=== PATIENT | female | born 1985 | race Two or more races ===

== ENCOUNTER 2017-06-18 00:27 | Day surgery (SDC) | payer BC ==
[2014-03-13 10:05] VITALS: Ht 149.9 cm; Wt 56.7 kg
[~2017-06-18] VITALS: Ht 149.9 cm; Wt 56.7 kg
[2017-06-18] VITALS (8 sets, daily range): BP systolic 99–121; BP diastolic 65–85
[~2017-06-18 00:27] MED LIST: ACE325 PO; ACE500 PO; ACET-1718 PO; AMIT-106 PO; AMOX-362 PO; AMOX-559 PO; AMOX1TAB3 PO; ASPI-715 PO; ASPI1TAB35 PO; AZIT-1 PO; BAC PO; BACDS; BACDS PO; BENZ200C15 PO; BUTA-1 PO; BUTA-324 PO; BUTA1CAP4 PO; BUTA1TAB14 PO; CEFU250T11 PO; CELE100C79 PO; CEP250 PO; CEPH250C37 PO; CHOL200074 PO; CHOL500016 PO; CHOL500050 PO; CIPR-344 PO; CIT20 PO; CITA-156 PO; CLIN-75 PO; CLIN300C99 PO; CLOM50TA18 PO; CYCL10TA29 PO; DAR100 PO; DESV50TA9 PO; DIPH-911 PO; DOC100 PO; DOCO200C PO; DULO30CA6 PO; DULO60CA56 PO; ESCI20TA38 PO; ESCI5TAB10 PO; ETHI1TAB26 PO; FAM20 PO; FAMO20TA28 PO; FERR-1 PO; FERR-53 PO; FLUC150T40 PO; FOL1 PO; GABA-549 PO; GUAI120L3 PO; HYDR-317 PO; HYDR-3503 PO; HYDR-385 PO; HYDR-389 PO; HYDR-4225 PO; HYDR-4228 PO; HYDR-4309 PO; HYDR2TAB74 PO; IBU600 PO; IBU800 PO; IBUP-1671 PO; IBUP-2708 PO; IBUP600T22 PO; IBUP800T37 PO; IRON; IRON1TAB55 PO; KET10 PO; KLONOPIN; L-NO1TBD6 PO; LEVAQUIN; LEVO750T44 PO; LIDO700A19 TOP; LOR5/325 PO; LORA-1458 PO; MELO-205 PO; METO-734 PO; METR-1 PO; METXR500 PO; MULT-1335 PO; NAP250 PO; NAPR-733 PO; NAPR500T75 PO; NEBI2.5T PO; NIF10 PO; NIT100 PO; NITR-105 PO; NITR-106 PO; OMEP-218 PO; OND4 PO; ONDA-153 SL; ONDA4TAB PO; ONDA4TAB9 SL; ONDA4TAB97 PO; ONDA8TAB98 PO; OXYC-373 PO; OXYC-865 PO; OXYC1CAP PO; OXYC1TAB54 PO; PANT40TA13 PO; PANT40TA65 PO; PED1TAB.; PER PO; PHEN-530 PO; PHEN100T27 PO; PHEN200T32 PO; PHENA100; PHENA200 PO; PHENERGAN; PNV1TABL92 PO; POTA-1 PO; POTA20TA85 PO; POTA20TA94 PO; POTA25TA28 PO; POTA8TAB41 PO; POTT20 PO; PRAZ1CAP26 PO; PRED-1 PO; PRED20TA6 PO; PREN-75 PO; PRO100 PO; PRO25 PO; PROC25SU3 PO; PROM-110 PO; PROM12.514 RC; PROM125S PR; PROM25SU9 RC; PROP20TA56 PO; PYRI25TA18 PO; SER50; SERT-1 PO; SERT-181 PO; SERT-184 PO; SERT20OR6 PO; SERT25TA87 PO; SERT25TA90 PO; SULF-198 PO; SUMA50TA34 PO; TAMS0.4C25 PO; TERB5TAB15 PO; TRAM-420 PO; TRAM-627 PO; TRAZ-163 PO; VIT B6; [UNRECOGNIZED DRUG - CODE] IM; [UNRECOGNIZED DRUG - CODE] PO; [UNRECOGNIZED DRUG - CODE] PO; [UNRECOGNIZED DRUG - CODE] PO; [UNRECOGNIZED DRUG - CODE] PO; [UNRECOGNIZED DRUG - CODE] PO; [UNRECOGNIZED DRUG - REMARK]
[2017-06-18] MEDS ORDERED: PROPOFOL EMUL(*) 10MG/ML 20 ML 40 ML ONE (07:29)
--- NOTE | 2017-06-18 07:34 | Post Operative Progress Note ---
Post Operative Progress Note Date: Jun 18, 2017 Time: 10:49 Surgeon: marilu Anesthesia: dr noe Pre-Op Diagnosis: hematemesis Post-Op Diagnosis: distaal esophagitis and gastritis Procedure(s): egd and biopsy CHRIS CROW MD Jun 18, 2017 07:34
--- NOTE | 2017-06-18 07:36 | Short(Outpt) Discharge Summary ---
Discharge Summary Reason for Hosp/Final Diag: (1) Hematemesis Hospital Course & Plan: distal esophagitis and gastritis Departure Discharge to: Home Discharge Instructions Home Meds Active Scripts Amitriptyline Hcl (AMITRIPTYLINE HCL) 25 Mg Tablet, 1 TAB PO QHS, #30 TAB 5 Refills Prov:EROS PERERA APRN-C 06/12/17 Butalb/Acetaminophen/Caff 50-325-40 Mg (FIORICET 50-325-40) 1 Each Tablet, 1-2 TAB PO Q4H Y for HEADACHE, #30 TAB 0 Refills Prov:EROS PERERA APRNP-C 06/03/17 Promethazine Hcl (PROMETHAZINE HCL) 12.5 Mg Supp.rect, 1 SUPP RC Q8H Y for NAUSEA, #30 SUPP.RECT 0 Refills as needed for nausea associated with migraine Prov:EROS PERERA APRN-C 06/03/17 Tramadol Hcl (TRAMADOL HCL) 50 Mg Tablet, 1 TAB PO QID, #120 TAB 0 Refills Prov:EROS PERERA APRNP-C 05/19/17 Duloxetine Hcl (CYMBALTA) 60 Mg Capsule.dr, 1 TAB PO DAILY, #30 TAB 6 Refills Prov:EROS PERERA APRN-C 05/19/17 Discontinued Reported Medications Tamsulosin Hcl (FLOMAX) 0.4 Mg Cap.er.24h, 0.4 MG PO QPM, #15 CAP 01/29/17 Discontinued Scripts Levofloxacin 750 Mg Tab (LEVAQUIN 750 MG TAB) 750 Mg Tablet, 1 TAB PO DAILY, #5 TAB 0 Refills Prov:EROS PERERA APRNP-C 06/12/17 Benzonatate (BENZONATATE) 200 Mg Capsule, 1 CAP PO TID Y for cough, #30 CAPSULE 0 Refills Prov:EROS PERERA APRN-C 06/10/17 Prednisone (PREDNISONE) 20 Mg Tablet, 2 TAB PO QDAY, #10 TAB 0 Refills Prov:EROS PERERA APRNP-C 06/10/17 Lidocaine (Lidocaine) 5 % Adh..patch, 1 PATCH TOP DAILY for 30 Days, #30 PATCH 2 Refills May apply 1/2-1 patch for up to 12h/day. Cover most painful areas. May cut to size. Prov:EROS PERERA APRN-C 05/19/17 Promethazine Hcl (PROMETHAZINE HCL) 25 Mg Tablet, 25 MG PO Q8H Y for NAUSEA/ VOMITING, #12 TAB Prov:JOHNATHON ARROYO PA-C 04/20/17 Prazosin Hcl (PRAZOSIN HCL) 1 Mg Capsule, 2 MG PO QHS, #180 CAPSULE 0 Refills Prov:EROS PERERA APRN-C 03/23/17 Cholecalciferol (Vitamin D3) (Vitamin D) 50,000 Unit Capsule, 1 CAP PO QWEEK, # 12 CAP 0 Refills Prov:EROS PERERA APRN-C 11/07/16 Hydroxyzine Hcl (HYDROXYZINE HCL) 50 Mg Tablet, 1 TAB PO QID Y for ANXIETY, #30 TAB 0 Refills Prov:EROS PERERA APRNC 05/19/17 Diet: Regular Activity: As Tolerated Special Instructions: continue protonix CHRIS CROW MD Jun 18, 2017 07:36
[2017-06-18] MEDS: NORMOSOL R SOLN(*) 1000 ML BAG 1,000 ML IV PRN ×2 (09:05→11:13)
[2017-06-18] MEDS ORDERED: LIDOCAINE/SOD BICARB 8.4% SYR ID ONE (09:25)
[2017-06-18] MEDS ORDERED: MIDAZOLAM 2 MG/2 ML VIAL IVP PRN (09:25)
[2017-06-18] MEDS ORDERED: PROMETHAZINE 25 MG/ML 1 ML AMP ONE (11:09)
--- NOTE | 2017-06-18 16:09 | OPERATIVE REPORT 1 ---
EVENT DATE: June 18, 2017 SURGEON: Bird Velasquez MD ANESTHESIOLOGIST: Abbey Barragan MD ANESTHESIA: Sedation. PREOPERATIVE DIAGNOSIS Hematemesis. POSTOPERATIVE DIAGNOSIS Distal esophagitis and gastritis. PROCEDURE PERFORMED Esophagogastroduodenoscopy with biopsy. DESCRIPTION OF PROCEDURE The patient was placed in the left lateral decubitus position and given intravenous sedation. The flexible gastroscope was inserted. The GE junction was at 32 cm, distinct. There were irritations and erosions in three different areas. Pictures were taken. We entered the stomach which was empty. There were some flecks of bright red blood on the gastric mucosa. She appeared to have a gastritis. We passed through the pylorus into the second and third portions of the duodenum which were normal. The duodenal bulb was normal. At the pylorus, she had a prepyloric erosion, not a discrete ulcer. The scope was then placed in the middle of the stomach. Biopsies were taken for H. pylori, and biopsies were taken for histology. The scope was retroflexed. There were no fundic lesions. No hiatal hernia. The scope was withdrawn. The patient tolerated the procedure well with no apparent complication. MTDCelestino
[2017-06-19] MEDS ORDERED: PANT40TA65 PO (16:15)
[2017-06-19] MEDS ORDERED: AMIT-108 PO (16:33)
[2017-06-19] MEDS ORDERED: TRAM-420 PO (16:33)
[2017-06-19] MEDS ORDERED: PROM12.514 RC (16:49)
[2017-06-24] MEDS ORDERED: PRAZ2CAP26 PO (08:09)
[2017-06-24] MEDS ORDERED: BUTA1TAB14 PO (08:10)
[2017-06-25] MEDS ORDERED: GABA-549 PO (12:01)
== END 2017-06-18 12:18 | disposition home or self-care (01) ==
LOC: OR 00:27
PROVIDERS: ATTEND Surgery
DX: K92.0 Hematemesis (principal); K20.9 Esophagitis, unspecified; K29.70 Gastritis, unspecified, without bleeding
CPT/HCPCS: 43239; 87077; 88305; 88344; J2550; J2704

== ENCOUNTER → 2018-01-08 | Outpatient (CLI) | payer BC ==
[2014-03-13 10:05] VITALS: BMI 27.3
[~2018-01-08] MED LIST changes: +AMIT-108 PO; +PRAZ2CAP26 PO; +PREG75CA60 PO; -PREN-75 PO; +PREN1TAB29 PO; +SERT-173 PO; -SERT20OR6 PO; +SUCR1TAB85 PO; -TRAZ-163 PO; +TRAZ100T31 PO
== END ==
LOC: RESP 03:22
PROVIDERS: ATTEND Nurse Practitioner Family
DX: G47.30 Sleep apnea, unspecified (principal)

== ENCOUNTER 2018-04-08 01:48 | Observation (INO) | payer BC ==
[2018-04-08] VITALS (20 sets, daily range): BP systolic 83–111; BP diastolic 49–86
[~2018-04-08] VITALS: Ht 149.9 cm; Wt 52.6 kg
[~2018-04-08 01:48] MED LIST changes: -HYDR-4309 PO; +HYDR-653 PO
[2018-04-08] MEDS ORDERED: ceFAZolin(*) 1 GM VIAL 1 GM in NS(*) 0.9% 100 ML ADDVANT BAG 100 ML IVPB ONE (13:35)
[2018-04-08] MEDS ORDERED: NORMOSOL R SOLN(*) 1000 ML BAG 1,000 ML IV PRN (13:35)
[2018-04-08] MEDS ORDERED: LIDOCAINE/SOD BICARB 8.4% SYR ID ONE (13:35)
[2018-04-08] MEDS ORDERED: SCOPOLAMINE 1.5 MG PATCH TD ONE (13:35)
[2018-04-08] MEDS ORDERED: MIDAZOLAM 2 MG/2 ML VIAL IVP PRN (13:35)
[2018-04-08] MEDS ORDERED: fentaNYL CITR 100 MCG/2 ML AMP ONE ×2 (15:19→17:18)
[2018-04-08] MEDS ORDERED: KETOROLAC 30 MG/ML VIAL ONE ×2 (15:23→16:54)
[2018-04-08] MEDS ORDERED: PROPOFOL EMUL(*) 10MG/ML 20 ML 60 ML ONE (15:23)
[2018-04-08] MEDS ORDERED: HYDROCORTISONE 1% CR 28.35 GM TP ONE (15:35)
[2018-04-08] MEDS ORDERED: GENTAMICIN 80 MG/2 ML VIAL ONE (15:36)
[2018-04-08] MEDS ORDERED: MIDAZOLAM 2 MG/2 ML VIAL ONE (16:08)
[2018-04-08] MEDS ORDERED: DEXAMETHASONE SOD PHOS 10MG/ML ONE (16:08)
[2018-04-08] MEDS ORDERED: ONDANSETRON 4 MG/2 ML VIAL ONE ×2 (16:09→16:49)
[2018-04-08] MEDS ORDERED: ALBUTEROL/IPRATROPIUM 3 ML NEB NEB ONE (16:35)
[2018-04-08] MEDS ORDERED: GLYCOPYRROLATE 1 MG/5 ML INJ ONE (16:49)
[2018-04-08] MEDS ORDERED: ROCURONIUM BROM 10 MG/ML 10 ML ONE (16:49)
[2018-04-08] MEDS ORDERED: PROPOFOL EMUL(*) 10MG/ML 20 ML 20 ML ONE (16:49)
--- NOTE | 2018-04-08 17:14 | RADIOLOGY IMAGING REPORT ---
FACILITY: [facility] - [place] PATIENT NAME: Deyanira Nava : 1985 MR: [id number] V: [id number] EXAM DATE: ORDERING PHYSICIAN: SOILA VALENCIA TECHNOLOGIST: Location: [facility] Patient: Deyanira Nava : 1985 Visit/Account:[id number] Date of Sevice: 04/08/2018 CHEST SINGLE AP History: ASPIRATION DURING EXTUBATION FINDINGS: Comparison studies: None. Tubes and Lines: None. Lungs and pleura: Well aerated. No evidence of focal consolidation or pleural effusions. No evid ence of aspiration pneumonitis. Mediastinum: normal. Cardiac silhouette: normal . Osseous structures: Unremarkable for age . IMPRESSION: Normal chest Report Dictated By: Shaq Angeles MD at 04/08/2018 5:09 PM Report E-Signed By: Shaq Angeles MD at 04/08/2018 5:10 PM WSN:[email or web address]
--- NOTE | 2018-04-08 18:48 | OPERATIVE REPORT 1 ---
EVENT DATE: April 08, 2018 SURGEON: Brice Rossi MD ANESTHESIOLOGIST: Brice Teixeira MD ANESTHESIA: General anesthetic. PREOPERATIVE DIAGNOSES 1. Chronic urgency and frequency of urination. 2. Marked difficulty with micturition, has to strain and lean forward at times to eliminate. 3. Status postoperative sling vesicourethropexy and pelvic reconstruction. 4. Probable irritable bladder syndrome. POSTOPERATIVE DIAGNOSES 1. Chronic urgency and frequency of urination. 2. Marked difficulty with micturition, has to strain and lean forward at times to eliminate. 3. Status postoperative sling vesicourethropexy and pelvic reconstruction. 4. Probable irritable bladder syndrome. PROCEDURES PERFORMED 1. Urethral calibration. 2. Cystourethroscopy. 3. [place] hydrodistention of the bladder. DESCRIPTION OF PROCEDURE Under general anesthetic, the patient was prepped and draped in the standard lithotomy position. The urethra calibrated approximately 26- to 28-Kenyan with the [place] bulbs. The 21 panendoscope admitted through the urethra into the bladder. The urine was obtained for urinalysis and culture and sensitivity. Bladder filled under gravity flow was measured and totaled approximately 900 mL. On drainage of the bladder, there was gross terminal hematuria. On reinspection of the bladder, there were diffuse glomerulations. On routine cystoscopy, the urethra trigone and ureteral orifices were normal. Bladder showed 2 to 3+ trabeculation. No demonstrable lesions. The bladder appeared to be well supported. There was minimal cystocele. No urethral cystocele. Purulent material was expressed from the urethra per instrumentation. A urethral You 22-Kenyan, 5 mL balloon was left indwelling. Intraoperatively, patient had some emesis of apparent greenish solution. See anesthesiologist's note for details. Patient was intubated by Dr. Teixeira, the anesthesiologist. Patient was extubated and breathing with good saturations at conclusion of the procedure. Patient returned to recovery room in satisfactory condition. Patient will be ready for discharge home if doing well. Force fluids, 2 L per day. Activities as tolerated. She is to follow up the April. She is to call for an appointment. She is to continue her usual medications. A copy of instructions were given to the patient. Patient was given Toradol intraoperatively by Dr. Teixeira. Patient will be discharged home on Cipro, Tylenol No. 3 therapy, Pyridium, Pepcid, and Motrin therapy. MTDD
--- NOTE | 2018-04-08 19:39 | Hospitalist Consultation ---
History of Present Illness Requesting Physician Dr. Rossi Reason for Consult Aspiration History of Present Illness This patient was admitted for a cystoscopy. She suffered an aspiration event during the procedure. Anesthesia reports that they were able to suction the airway and then were able to successfully intubate. She is asymptomatic at this time. History Problems: (1) PTSD (post-traumatic stress disorder) Status: Chronic (2) Fibromyalgia (3) Anxiety and depression Status: Chronic (4) Status post laparoscopic assisted vaginal hysterectomy Status: Chronic Home Meds Active Scripts Tramadol Hcl (TRAMADOL HCL) 50 Mg Tablet, 0.5 TAB PO TID, #45 TAB 0 Refills Prov:EROS PERERA APRN [employer]ER-C 04/06/18 Promethazine Hcl (PROMETHAZINE HCL) 25 Mg Tablet, 1 TAB PO Q8H PRN for NAUSEA/VOMITING, #6 TAB Prov:EROS PERERA APRN [employer]-C 03/05/18 Butalb/Acetaminophen/Caff 50-325-40 Mg (FIORICET 50-325-40) 1 Each Tablet, 1-2 TAB PO Q4H PRN for HEADACHE, #8 TAB 0 Refills Prov:EROS PERERA APRN [employer]-C 03/05/18 Amitriptyline Hcl (AMITRIPTYLINE HCL) 50 Mg Tablet, 1 TAB PO QHS, #90 TAB 1 Refill Prov:EROS PERERA APRN [employer]-C 03/05/18 Pregabalin (LYRICA) 75 Mg Capsule, 1 CAP PO BID, #180 CAPSULE 1 Refill Prov:EROS PERERA APRN [employer]-C 03/05/18 Duloxetine Hcl (CYMBALTA) 60 Mg Capsule.dr, 1 TAB PO DAILY, #90 TAB 1 Refill Prov:EROS PERERA APRN [employer]-C 10/23/17 Prazosin Hcl (PRAZOSIN HCL) 1 Mg Capsule, 1 CAP PO QHS, #90 CAPSULE 3 Refills Prov:EROS PERERA APRN [employer]-C 07/30/17 Pantoprazole Sodium (PANTOPRAZOLE SODIUM) 40 Mg Tablet.dr, 1 TAB PO BID, #180 TAB 1 Refill Prov:ERSO PEREAR APRN [employer]-C 07/30/17 Allergies: Coded Allergies: No Known Drug Allergies (Unverified , 04/05/18) Patient History: Autoimmune disorder BROTHER OR SISTER Blood clots BROTHER OR SISTER Hx Smoking: No Smoking Status: Never Smoker Exposure to Second Hand Smoke?: No Caffeine Intake: Soda Caffeine/Cups Per Day: OCC ONE SODA DAILY Hx Alcohol Use: Yes Hx Substance Use Disorder: No Social Drug Use: Never History of IV Drug Use: No Review of Systems All Systems Reviewed/Normal: Yes Exam Vital Signs Vital Signs Date Time Temp Pulse Resp B/P (MAP) Pulse Ox O2 Delivery O2 Flow Rate FiO2 04/08/18 19:18 99.2 107 18 91/66 (74) 96 Room Air 04/08/18 18:29 1.0 Cardiovascular: Regular Rate and Rhythm Respiratory: Clear to Auscultation Medical Decision Making EKG / Imaging Imaging Chest x-ray reviewed. Assessment and Plan Problems: (1) Aspiration into airway Assessment & Plan: She did suffer an aspiration event during her procedure, but is asymptomatic at this time. Her chest x-ray from just after the procedure is unremarkable. We will monitor her overnight and repeat a chest x-ray in the morning. (2) Anxiety and depression Status: Chronic Assessment & Plan: She is on multiple chronic medications. These have all been ordered. Venous Thromboembolism Antithrombotics Is Pt On Any Antithrombotics?: No Exam Sepsis Risk: No Definite Risk MICKY MARTINEZ DO Apr 08, 2018 19:39
[2018-04-08] MEDS ORDERED: BELLADONNA ALKALOIDS/OPIUM 30 MG SUPP PR PRN (20:20)
[2018-04-08] MEDS ORDERED: LR(*) 1000 ML BAG 1,000 ML IV PRN (20:20)
[2018-04-08] MEDS ORDERED: ZOLPIDEM TARTRATE 5 MG TAB PO PRN (20:20)
[2018-04-08] MEDS ORDERED: GLYCOPYRROLATE 0.2MG/ML 1 ML INJ IVP PRN (20:20)
[2018-04-08] MEDS ORDERED: BELLADONNA ALK/OPIUM 60MG SUPP PR PRN (20:55)
[2018-04-08] MEDS ORDERED: DULoxetine HCL 30 MG CAPCR PO SCH (21:00)
[2018-04-08] MEDS ORDERED: AMITRIPTYLINE HCL 25 MG TAB PO SCH (21:00)
[2018-04-08] MEDS ORDERED: PRAZOSIN HCL 1 MG CAP PO SCH (21:00)
[2018-04-08] MEDS: BENZOCAINE/MENTHOL 1 EACH LOZG PO PRN ×2 (21:21→23:58)
[2018-04-08] MEDS: FAMOTIDINE 20 MG TAB PO SCH (21:21)
[2018-04-08] MEDS: PREGABALIN 75 MG CAPSULE PO SCH (21:22)
[2018-04-08] MEDS: DOCUSATE SODIUM 100 MG CAP PO SCH (21:22)
[2018-04-08] MEDS: PANTOPRAZOLE SOD 40 MG TABEC PO SCH (21:22)
[2018-04-08] MEDS: traMADol 50 MG TAB PO SCH (21:22)
[2018-04-08] MEDS: ceFAZolin(*) 1 GM VIAL 1 GM in NS(*) 0.9% 100 ML ADDVANT BAG 100 ML IV SCH (21:24)
[2018-04-08] MEDS ORDERED: ceFAZolin 1 GM VIAL IVPB SCH (22:00)
[2018-04-08] MEDS: GENTAMICIN/NS 80 MG/100 ML PB 100 ML IVPB SCH ×2 (23:38→23:58)
[2018-04-09] VITALS: BP 97/65
[2018-04-09 01:00] VITALS: BP 88/60
[2018-04-09 02:00] VITALS: BP 83/54
[2018-04-09 03:00] VITALS: BP 92/65
[2018-04-09] MEDS: ceFAZolin(*) 1 GM VIAL 1 GM in NS(*) 0.9% 100 ML ADDVANT BAG 100 ML IV SCH ×2 (04:37→09:36)
[2018-04-09] MEDS: BENZOCAINE/MENTHOL 1 EACH LOZG PO PRN ×3 (04:37→13:23)
[2018-04-09] MEDS: ACETAMIN/CODEINE #3 300-30 MG PO PRN ×2 (06:07→10:46)
[2018-04-09 06:10] LABS: PLATELET COUNT, AUTOMATED 261 K/uL (150-450)
[2018-04-09] MEDS ORDERED: BETHANECHOL CHL 25 MG TAB PO ONE ×2 (06:20→13:00)
--- NOTE | 2018-04-09 06:26 | RADIOLOGY IMAGING REPORT ---
FACILITY: [facility] - [place] PATIENT NAME: Deyanira Nava : 1985 MR: [id number] V: [id number] EXAM DATE: ORDERING PHYSICIAN: MICKY MARTINEZ TECHNOLOGIST: Location: [facility] - [place] Patient: Deyanira Nava : 1985 Visit/Account:[id number] Date of Sevice: 04/09/2018 ADDENDUM #1 Addendum: Original report on this study was for a different patient examination. The correct report is as follo ws: EXAMINATION: Portable AP Chest HISTORY: Aspiration. COMPARISON: 04/08/2018. FINDINGS: The lungs are clear. No focal consolidation or pleural effusion. No pneumothorax. Normal cardiomediastinal silhouette, with normal heart size and pulmonary vascularity. Visualized osseous structures appear intact. IMPRESSION: No evidence of acute cardiopulmonary disease. Stable exam. Report Dictated By: Joseph Bianchi MD at 04/09/2018 6:26 AM Report E-Signed By: Joseph Bianchi MD at 04/09/2018 6:28 AM ORIGINAL REPORT EXAMINATION: Portable AP Chest HISTORY: Follow-up rib fractures, removal of chest tube. COMPARISON: 04/08/2018. FINDINGS: Stable small left pleural effusion with adjacent left basilar opacity. Stable tiny left apical pneumo thorax. No significant pleural fluid on the right. No right-sided pneumothorax. Stable cardiomediastinal silhouette. Normal heart size and pulmonary vascularity. No new osseous findings. Bilateral rib fractures. Plate and screw fixation along the sternum. IMPRESSION: 1. Stable tiny left apical pneumothorax. 2. Unchanged left pleural effusion with adjacent left basilar opacity. 3. No new findings in the chest. Report Dictated By: Joseph Bianchi MD at 04/09/2018 6:12 AM Report E-Signed By: Joseph Bianchi MD at 04/09/2018 6:22 AM WSN:[id number]
[2018-04-09 08:09] VITALS: BP 99/66
[2018-04-09 08:17] VITALS: Ht 149.9 cm; Wt 52.6 kg
[2018-04-09] MEDS: GENTAMICIN/NS 80 MG/100 ML PB 100 ML IVPB SCH (08:18)
[2018-04-09] MEDS: DOCUSATE SODIUM 100 MG CAP PO SCH (08:19)
[2018-04-09] MEDS: PANTOPRAZOLE SOD 40 MG TABEC PO SCH (08:19)
[2018-04-09] MEDS: FAMOTIDINE 20 MG TAB PO SCH (08:19)
[2018-04-09] MEDS: PREGABALIN 75 MG CAPSULE PO SCH (08:20)
[2018-04-09] MEDS: traMADol 50 MG TAB PO SCH (08:21)
--- NOTE | 2018-04-09 10:20 | Hospitalist Progress Note ---
Subjective Progress Notes Subjective She was admitted after aspiration event during surgery. She reports she feels much better today. Denies cough, SOB, CP. Patient Complains of: Cardiovascular: No: Chest Pain Respiratory: No: Cough, Shortness of Breath Physical Exam Vital Signs Date Time Temp Pulse Resp B/P (MAP) Pulse Ox O2 Delivery O2 Flow Rate FiO2 04/09/18 08:10 91 Room Air 04/09/18 08:09 98.9 100 18 99/66 (77) 04/08/18 19:45 0.5 Intake and Output 04/09/18 06:59 Intake Total 2401 ml Output Total 600 ml Balance 1801 ml Intake Oral 680 ml IV Total 1721 ml Output Urine Total 600 ml # Bowel Movements 1 General Appearance: Alert, Awake, No Acute Distress, Afebrile Neuro: No Gross deficits Cardiovascular: Regular Rate and Rhythm Respiratory: No Respiratory Distress, Clear to Auscultation GI: Soft and Non-Tender Psych: Alert & Oriented X3, Appropriate Mood & Affect Result Diagram: 04/09/18 0542 Assessment and Plan Problems: (1) Aspiration into airway Assessment & Plan: She did suffer an aspiration event during her procedure, but is asymptomatic at this time. Her chest x-ray from just after the procedure is unremarkable. Repeat chest x-ray this morning, shows no acute processes appears stable from surgery image. (2) Anxiety and depression Status: Chronic Assessment & Plan: She is on multiple chronic medications. These have all been ordered. Exam Sepsis Risk: No Definite Risk CRISTÓBAL GIRON HEDIS REGISTERED NURSE RN Apr 09, 2018 10:20
[2018-04-09 10:42] VITALS: BP 97/69
[2018-04-09] MEDS ORDERED: FAMO20TA28 PO (12:25)
[2018-04-09] MEDS ORDERED: PHEN200T32 PO (12:26)
[2018-04-09] MEDS ORDERED: CIPR-344 PO (12:27)
[2018-04-09] MEDS ORDERED: HYDR-653 PO (12:27)
[2018-04-09] MEDS ORDERED: IBUP600T22 PO (12:27)
[2018-04-09] MEDS ORDERED: KETOROLAC 30 MG/ML VIAL IVP ONE (13:00)
[2018-04-09] MEDS ORDERED: TAMSULOSIN HCL 0.4 MG CAP PO ONE (13:00)
[2018-04-12] MEDS ORDERED: CLO10 PO (16:28)
== END 2018-04-09 12:58 | disposition home or self-care (01) ==
LOC: OR 01:48 → MED 18:19
DX: K58.9 Irritable bowel syndrome, unspecified (principal); R35.0 Frequency of micturition; R39.15 Urgency of urination; R31.9 Hematuria, unspecified; T17.918A Gastric contents in respiratory tract, part unspecified causing other injury, initial encounter; M79.7 Fibromyalgia; F41.8 Other specified anxiety disorders; E87.6 Hypokalemia; F43.10 Post-traumatic stress disorder, unspecified; Y83.8 Other surgical procedures as the cause of abnormal reaction of the patient, or of later complication, without mention of misadventure at the time of the procedure; Y73.3 Surgical instruments, materials and gastroenterology and urology devices (including sutures) associated with adverse incidents; Y92.234 Operating room of hospital as the place of occurrence of the external cause; Y99.8 Other external cause status
CPT/HCPCS: 36415; 52281; 71045; 81001; 85025; 87077; 87088; 87186; 94640; C1758; G0378; J0690; J1100; J1580; J1885; J2250; J2405; J2704; J3010; J3490; J7050; J7120; J7620

== ENCOUNTER → 2018-04-12 | Outpatient (CLI) | payer BC ==
[2018-04-09 08:17] VITALS: BMI 23.4
[~2018-04-12] MED LIST changes: +CLO10 PO
[2018-04-12 16:59] LABS: PLATELET COUNT, AUTOMATED 326 K/uL (150-450)
== END ==
LOC: LAB 16:42
PROVIDERS: ATTEND Nurse Practitioner Family
DX: E55.9 Vitamin D deficiency, unspecified (principal); D64.9 Anemia, unspecified; R53.83 Other fatigue
CPT/HCPCS: 36415; 82040; 82247; 82306; 82310; 82374; 82435; 82565; 82947; 84075; 84132; 84155; 84295; 84443; 84450; 84460; 84520; 85025

== ENCOUNTER → 2018-06-15 | Outpatient (CLI) | payer BC ==
[2018-04-09 08:17] VITALS: BMI 23.4
[~2018-06-15] MED LIST changes: +DICL100G39 TOP
== END ==
LOC: LAB 14:53
PROVIDERS: ATTEND Nurse Practitioner Primary Care
DX: Z02.9 Encounter for administrative examinations, unspecified (principal)

== ENCOUNTER → 2018-06-17 | Outpatient (CLI) | payer BC ==
[2018-04-09 08:17] VITALS: BMI 23.4
--- NOTE | 2018-06-17 16:45 | RADIOLOGY IMAGING REPORT ---
[place] [facility] [place] Deyanira Nava : 1985 MR: [id number] V: [id number] EXAM DATE: ORDERING PHYSICIAN: AGUILA GARG TECHNOLOGIST: Location: [facility] Patient: Deyanira Nava : 1985 Visit/Account:[id number] Date of Sevice: 06/17/2018 Exam type: SOFT TISSUE HEAD NECK History: Patient noticed palpable lump along the posterior aspect of the left side of her neck since last week. Tender to palpation Comparison: None. Findings: In the subcutaneous soft tissues along the posterior aspect left side of the neck is a hypoechoic spa ce-occupying process measuring 1.1 x 0.7 x 1 cm with slightly irregular indistinct margins. No inter nal blood flow is demonstrated. This space-occupying process is approximately 6 mm deep to the skin there suggestion of a thin tract extending superiorly towards the skin although an actual opening on the skin is not appreciated. IMPRESSION: 1. In the subcutaneous soft tissues along the posterior left-sided the neck is a hypoechoic space-oc cupying process measuring 1.1 x 0.7 x 1 cm slightly indistinct margins and no internal flow. There s uggestion of a thin tract extending towards the skin although an actual opening in the skin is not ap preciated. This may represent an infected sebaceous cyst or small abscess. Patient does not give hi story of an insect bite or recent trauma. Given the relatively rapid appearance and tenderness to pa lpation a neoplastic mass seems less likely. Report Dictated By: Miriam Casanova MD at 06/17/2018 4:34 PM Report E-Signed By: Miriam Casanova MD at 06/17/2018 4:39 PM WSN:[email or web address]
== END ==
LOC: US 00:32
PROVIDERS: ATTEND Nurse Practitioner Primary Care
DX: R22.1 Localized swelling, mass and lump, neck (principal)
CPT/HCPCS: 76536

== ENCOUNTER → 2018-06-18 | Outpatient (CLI) | payer BC ==
[2018-04-09 08:17] VITALS: BMI 23.4
[2018-06-18 09:04] LABS: PLATELET COUNT, AUTOMATED 334 K/uL (150-450)
== END ==
LOC: LAB 08:51
PROVIDERS: ATTEND Nurse Practitioner Family
DX: R22.1 Localized swelling, mass and lump, neck (principal)
CPT/HCPCS: 36415; 82040; 82247; 82310; 82374; 82435; 82565; 82947; 84075; 84132; 84155; 84295; 84450; 84460; 84520; 85025; 85651; 86140

== ENCOUNTER → 2018-08-10 | Outpatient (CLI) | payer BC ==
[2018-04-09 08:17] VITALS: BMI 23.4
[~2018-08-10] MED LIST changes: +POTA8CAP6 PO
== END ==
LOC: LAB 20:09
PROVIDERS: ATTEND Nurse Practitioner Family
DX: E87.6 Hypokalemia (principal)
CPT/HCPCS: 36415; 82310; 82374; 82435; 82565; 82947; 84132; 84295; 84520